=== PATIENT | female | born 1975 | race Caucasian/White ===

== ENCOUNTER 2018-01-11 19:37 | Emergency (ER) | payer SELFPAY ==
--- NOTE | 2018-01-11 19:58 | NUR ---
PATIENT LEFT WITHOUT BEING SEEN BY DR. HUANG. NO FURTHER CARE PROVIDED FOR PATIENT.
== END 2018-01-11 19:58 | disposition left against medical advice (07) ==
LOC: MED 19:37
DX: Z53.21 Procedure and treatment not carried out due to patient leaving prior to being seen by health care provider (principal)